=== PATIENT | female | born 1980 | race Hispanic/Latino ===

== ENCOUNTER 2017-12-19 11:21 | Emergency (ER) | payer BC, OTHER ==
[2017-12-19 12:09] VITALS: BP 113/75; PULSE 75; RESP 16; TEMP 98.4; O2SAT 99
--- NOTE | 2017-12-19 16:21 | C.PDOC ---
History Of Present Illness 37 y/o female presents to the ER complaining of digitally and positionally reproducible pain at the bilateral parasternal area. Patient denies having any taruma, fall, injury, and lifting heavy objects. Patient does not have any other complaints. Time Seen by Provider: 12/19/17 16:13 Chief Complaint (Nursing): Chest Pain History Per: Patient History/Exam Limitations: no limitations Onset/Duration Of Symptoms: Days Current Symptoms Are (Timing): Still Present Severity: Moderate Past Medical History Reviewed: Historical Data, Nursing Documentation, Vital Signs Vital Signs: Last Vital Signs Temp 98.4 F 12/19/17 12:05 Pulse 75 12/19/17 12:05 Resp 16 12/19/17 12:05 BP 113/75 12/19/17 12:05 Pulse Ox 99 12/19/17 18:11 - Medical History PMH: Seizures Surgical History: No Surg Hx Family History: States: No Known Family Hx - Social History Hx Alcohol Use: Yes Hx Substance Use: No Review Of Systems Except As Marked, All Systems Reviewed And Found Negative. Constitutional: Negative for: Fever, Chills Cardiovascular: Positive for: Chest Pain Neurological: Negative for: Weakness, Numbness Physical Exam - Physical Exam Appears: Non-toxic, No Acute Distress, Other (thin, white woman) Skin: Normal Color, Warm, No Rash Head: Atraumatic, Normacephalic Eye(s): bilateral: Normal Inspection, PERRL Nose: Normal Oral Mucosa: Moist Neck: Supple Chest: Symmetrical, Tenderness (intercostal spaces bilaterally, parasternal areas) Cardiovascular: Rhythm Regular Respiratory: Normal Breath Sounds, No Accessory Muscle Use, No Rales, No Rhonchi , No Wheezing Extremity: Normal ROM Neurological/Psych: Oriented x3, Normal Speech, Normal Cognition, Normal Motor, Normal Sensation ED Course And Treatment ECG: Interpreted By De ECG Rhythm: Sinus Rhythm ECG Interpretation: Normal Rate From EC O2 Sat by Pulse Oximetry: 99 Pulse Ox Interpretation: Normal Medical Decision Making Medical Decision Making: digitally and positionally reproducable parasternal discomfort, no rash, no trauma, c/w costochondritis. no furrther w/u indicated. Disposition Doctor Will See Patient In The: Office Counseled Patient/Family Regarding: Studies Performed, Diagnosis - Disposition Referrals: Viji Portillo MD [Staff Provider] - Disposition: HOME/ ROUTINE Disposition Time: 16:21 Condition: GOOD Additional Instructions: motrin 400-600 mg every 6 hours as needed Nothing hot, no hot showers nor rubs nor hot packs. ice packs 1/2 hour per hour. no heavy lifting for 1 week Follow-up with your PMD as needed. Instructions: Costochondritis (ED) Forms: [facility] (Kinyarwanda) - Clinical Impression Clinical Impression: Chest discomfort - Scribe Statement The provider has reviewed the documentation as recorded by the [facility] Provider Attestation: All medical record entries made by the [facility] were at my direction and personally dictated by me. I have reviewed the chart and agree that the record accurately reflects my personal performance of the history, physical exam, medical decision making, and the department course for this patient. I have also personally directed, reviewed, and agree with the discharge instructions and disposition.
--- NOTE | 2017-12-20 23:12 | CARD ---
APPROVED REPORT EKG Measurement Heart [id number] <Conclusion> Normal sinus rhythm Possible Left atrial enlargement Borderline ECG
== END 2017-12-19 16:40 | disposition home or self-care (01) ==
LOC: C.ER 11:21
DX: R07.9 Chest pain, unspecified (principal)